=== PATIENT | male | born 1985 | race Asian ===

== ENCOUNTER 2017-05-17 16:04 | Outpatient (CLI) | payer OTHER ==
[2017-05-17 16:21] LABS: PLATELET COUNT 280 K/uL (142-355)
[2017-05-17 16:23] LABS: POTASSIUM 3.6 mmol/L (3.6-5.2); SODIUM 136 mmol/L (136-145)
== END 2017-05-17 19:31 | disposition home or self-care (01) ==
LOC: LAB 16:04
PROVIDERS: Internal Medicine Infectious Disease
DX: S42.352D Displaced comminuted fracture of shaft of humerus, left arm, subsequent encounter for fracture with routine healing (principal); T81.4XXD Infection following a procedure, subsequent encounter; Z45.2 Encounter for adjustment and management of vascular access device; Z79.2 Long term (current) use of antibiotics; E66.8 Other obesity
CPT/HCPCS: 80048; 85027; 86140